=== PATIENT | male | born 2000 ===

== ENCOUNTER 2018-09-25 17:19 | Emergency (ER) | payer SELFPAY ==
[~2018-09-25] VITALS: Ht 170.2 cm; Wt 65.8 kg
[2018-09-25] MEDS ORDERED: NS IV 1000 ML 1,000 ML IV SCH (18:08)
[2018-09-25] MEDS ORDERED: FAMOTIDINE 20MG/2ML IV (PEPCID) IV STA (18:08)
[2018-09-25] MEDS ORDERED: LIDOCAINE 2% VISCOUS 15 ML UDC PO ONE (18:15)
[2018-09-25] MEDS ORDERED: ANTACID SUSP 30 ML UDC (MYLANTA) PO ONE (18:15)
--- NOTE | 2018-09-25 18:25 | ED Chest Pain ---
General Chief Complaint: Chest Wall/Rib Pain Stated Complaint: EKG ABNORMAL AT [facility] Nursing Triage Note: AMB TO ROOM WAS SENT FROM [facility] FOR ABNORMOL EKG LANGUAGE LINE CALLED TO Sasha GARCIA AND THIS NURSE. PATIENT HAS HAD THE PAIN IN L CHEST WALL FOR 2 MONTHS . 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 Onset 2 months ago. Pain has been worse over the last 2 weeks. Also reports pain is worse at nighttime with lying down, movement, and eating breakfast. Patient does report nausea and vomiting with eating breakfast over the last 2 weeks. Patient was seen at [facility] today with an EKG performed. Patient reports being instructed come to the emergency department for further evaluation due to questionable EKG abnormalities. Timing/Duration: getting worse (worse over the last 2 weeks), other (2 month onset) Severity/Quality: sharp Location: central Radiation: no radiation Activities at Onset: none Prior CP/Workup: no prior chest pain, no prior cardiac workup Modifying Factors: worse with lying down, worse with movement ASA po MACHINE HOSTLER: No NTG SL MACHINE HOSTLER: No Allergies and Home Medications Allergies Coded Allergies: No Known Drug Allergies (Unverified , 09/25/18) Home Medications Omeprazole 40 Mg Capsule.dr, 40 MG PO DAILY Prescribed by: YESENIA CARTAGENA on 09/25/181936 Sucralfate 1 Gm Tablet, 1 GM PO ACHS 1 gram slurry po qAC &HS [id number]. Prescribed by: YESENIA CARTAGENA on 09/25/181936 Patient Home Medication List Home Medication List Reviewed: Yes Review of Systems Review of Systems Constitutional: No chills, No diaphoresis, No dizziness, No fever, No malaise, No weakness EENTM: No Symptoms Reported Respiratory: Denies Cough, Denies Orthopnea, Denies Shortness of Air, Denies SOA With Exertion, Denies Stridor, Denies Wheezing Cardiovascular: See HPI, Chest Pain; Denies Irregular Heart Rate, Denies Lightheadedness, Denies Palpitations, Denies Syncope Gastrointestinal: Denies Abdomen Distended, Denies Abdominal Pain, Denies Blood Streaked Stools, Denies Constipated, Denies Diarrhea; Nausea, Poor Appetite (poor appetite at breakfast ); Denies Rectal Bleeding; Vomiting Genitourinary: Denies Burning, Denies Discharge, Denies Frequency, Denies Hematuria, Denies Pain Musculoskeletal: no symptoms reported Skin: no symptoms reported Psychiatric/Neurological: No Symptoms Reported Endocrine: No Symptoms Reported All Other Systems Reviewed Negative Unless Noted: Yes (Negative excepted noted.) Past Uocihoo-Olfzhp-Eftztk Hx Past Med/Social Hx: Reviewed Nursing Past Med/Soc Hx Patient Social History Alcohol Use: Denies Use Recreational Drug Use: No Smoking Status: Never a Smoker Recent Foreign Travel: No Contact w/Someone Who Travel: No Recent Infectious Disease Expo: No Past Medical History Surgeries: No Respiratory: No Cardiac: Yes High Cholesterol Neurological: No Genitourinary: No Gastrointestinal: No Musculoskeletal: No Endocrine: No Psychosocial: Yes Anxiety Integumentary: No Family Medical History Reviewed Nursing Family Hx No Pertinent Family Hx Physical Exam Vital Signs Vital Signs - First Documented 09/25/18 17:25 Temp 99.0 Pulse 79 Resp 18 B/P (MAP) 127/79 O2 Delivery Room Air Capillary Refill : Height, Weight, BMI Height: 5'7.00" Weight: 145lbs. oz. [id number]; 21.09 BMI Method: General Appearance: No Apparent Distress, WD/WN HEENT: PERRL/EOMI, Pharynx Normal, Moist Mucous Membranes Neck: Full Range of Motion, Normal Inspection, Non Tender, Supple Respiratory: Lungs Clear, Normal Breath Sounds, No Accessory Muscle Use, No Respiratory Distress Cardiovascular: Regular Rate, Rhythm, No Edema, No Gallop, No JVD, No Murmur, Normal Peripheral Pulses Gastrointestinal: Normal Bowel Sounds, No Organomegaly, No Pulsatile Mass, Soft ; No Distended, No Rebound; Tenderness (epigastric tenderness.); No Other (No guarding) Extremity: Normal Capillary Refill, No Calf Tenderness, No Pedal Edema Neurologic/Psychiatric: Alert, Oriented x3, Normal Mood/Affect Skin: Normal Color, Warm/Dry Progress/Results/Core Measures Results/Orders Lab Results Laboratory Tests Test 09/25/18 18:28 09/25/18 19:00 Range/Units White Blood Count 10.8 4.3-11.0 10^3/uL Red Blood Count 4.60 4.35-5.85 10^6/uL Hemoglobin 14.0 13.3-17.7 G/DL Hematocrit 40 40-54 % Mean Corpuscular Volume 88 80-99 FL Mean Corpuscular Hemoglobin 30 25-34 PG Mean Corpuscular Hemoglobin Concent 35 32-36 G/DL Red Cell Distribution Width 12.6 10.0-14.5 % Platelet Count 346 130-400 10^3/uL Mean Platelet Volume 9.5 7.4-10.4 FL Neutrophils (%) (Auto) 63 42-75 % Lymphocytes (%) (Auto) 30 12-44 % Monocytes (%) (Auto) 5 0-12 % Eosinophils (%) (Auto) 3 0-10 % Basophils (%) (Auto) 0 0-10 % Neutrophils # (Auto) 6.8 1.8-7.8 X 10^3 Lymphocytes # (Auto) 3.2 1.0-4.0 X 10^3 Monocytes # (Auto) 0.5 0.0-1.0 X 10^3 Eosinophils # (Auto) 0.3 0.0-0.3 10^3/uL Basophils # (Auto) 0.0 0.0-0.1 10^3/uL Erythrocyte Sedimentation Rate 1 0-15 MM/HR Sodium Level 140 135-145 MMOL/L Potassium Level 3.8 3.6-5.0 MMOL/L Chloride Level 104 98-107 MMOL/L Carbon Dioxide Level 25 21-32 MMOL/L Anion Gap 11 5-14 MMOL/L Blood Urea Nitrogen 12 7-18 MG/DL Creatinine 0.81 0.60-1.30 MG/DL Estimat Glomerular Filtration Rate > 60 BUN/Creatinine Ratio 15 Glucose Level 97 70-105 MG/DL Calcium Level 9.3 8.5-10.1 MG/DL Corrected Calcium 8.5-10.1 MG/DL Magnesium Level 2.4 1.8-2.4 MG/DL Total Bilirubin 0.2 0.1-1.0 MG/DL Aspartate Amino Transf (AST/SGOT) 16 5-34 U/L Alanine Aminotransferase (ALT/SGPT) 20 0-55 U/L Alkaline Phosphatase 87 40-136 U/L Troponin I < 0.028 <0.028 NG/ML C-Reactive Protein High Sensitivity 0.23 0.00-0.50 MG/DL Total Protein 7.6 6.4-8.2 GM/DL Albumin 4.8 H 3.2-4.5 GM/DL TSH Cherry Testing 1.05 0.35-4.94 UIU/ML Urine Color YELLOW Urine Clarity CLEAR Urine pH 7 5-9 Urine Specific [place] 1.010 L 1.016-1.022 Urine Protein NEGATIVE NEGATIVE Urine Glucose (UA) NEGATIVE NEGATIVE Urine Ketones NEGATIVE NEGATIVE Urine Nitrite NEGATIVE NEGATIVE Urine Bilirubin NEGATIVE NEGATIVE Urine Urobilinogen NORMAL NORMAL MG/DL Urine Leukocyte Esterase NEGATIVE NEGATIVE Urine RBC (Auto) NEGATIVE NEGATIVE Urine RBC RARE /HPF Urine WBC NONE /HPF Urine Crystals NONE /LPF Urine Bacteria NEGATIVE /HPF Urine Casts NONE /LPF Urine Mucus NEGATIVE /LPF Urine Culture Indicated NO Urine Opiates Screen NEGATIVE NEGATIVE Urine Oxycodone Screen NEGATIVE NEGATIVE Urine Methadone Screen NEGATIVE NEGATIVE Urine Propoxyphene Screen NEGATIVE NEGATIVE Urine Barbiturates Screen NEGATIVE NEGATIVE Ur Tricyclic Antidepressants Screen NEGATIVE NEGATIVE Urine Phencyclidine Screen NEGATIVE NEGATIVE Urine Amphetamines Screen NEGATIVE NEGATIVE Urine Methamphetamines Screen NEGATIVE NEGATIVE Urine Benzodiazepines Screen NEGATIVE NEGATIVE Urine Cocaine Screen NEGATIVE NEGATIVE Urine Cannabinoids Screen NEGATIVE NEGATIVE My Orders Orders - YESENIA CARTAGENA PA Chest 1 View, Ap/Pa Only (09/25/18 18:08) Cbc With Automated Diff (09/25/18 18:08) Comprehensive Metabolic Panel (09/25/18 18:08) Magnesium (09/25/18 18:08) Thyroid Analyzer (09/25/18 18:08) Troponin I (09/25/18 18:08) Ua Culture If Indicated (09/25/18 18:08) Lidocaine 2% Viscous 15 Ml (Xylocaine Vi (09/25/18 18:15) Antacid Suspension (Mylanta Suspension (09/25/18 18:15) Famotidine Injection (Pepcid Injection) (09/25/18 18:08) Saline Lock/Iv-Start (09/25/18 18:08) Ns Iv 1000 Ml (Sodium Chloride 0.9%) (09/25/18 18:08) Drug Screen Stat (Urine) (09/25/18 18:08) Hs C Reactive Protein (09/25/18 18:17) Erythrocyte Sedimentation Rate (09/25/18 18:17) Ekg Tracing (09/25/18 18:18) Medications Given in ED Current Medications Medications Dose Ordered Sig/Jaspreet Route Start Time Stop Time Status Last Admin Dose Admin Al Hydrox/Mg Hydrox/Simethicone 30 ml ONCE ONCE PO 09/25/18 18:15 09/25/18 18:16 DC 09/25/18 18:21 30 ML Lidocaine HCl 15 ml ONCE ONCE PO 09/25/18 18:15 09/25/18 18:16 DC 09/25/18 18:22 15 ML Vital Signs/I&O 09/25/18 17:25 Temp 99.0 Pulse 79 Resp 18 B/P (MAP) 127/79 O2 Delivery Room Air Initial ECG Impression Date: Sep 25, 2018 Initial ECG Impression Time: 18:23 Initial ECG Rate: 72 Initial ECG Rhythm: Normal Sinus Initial ECG Intervals: Normal Initial ECG Impression: Normal Initial ECG Comparisson: Unchanged (unchanged from ECG from [facility].) Comment Sinus rhythm without STEMI. ECG reviewed with Dr. Almonte. Diagnostic Imaging Diagonstic Imaging: Xray Plain Films/CT/US/NM/MRI: chest Comments negative chest xray. Reviewed: Reviewed by Me (radiology report reviewed by me) Departure Communication (Admissions) Patient seen and evaluated. Initial labs, chest x-ray, and EKG obtained. Patient was given 1 L of normal saline, Pepcid 20 mg IV, and a GI cocktail with improvement in symptoms. All laboratory and diagnostic findings discussed with the patient. Plan for discharge to home with follow-up as an outpatient with [facility]. Patient to return to the emergency department for worsened symptoms or any other concerns Impression Primary Impression: Gastritis, acute Qualified Codes: K29.00 - Acute gastritis without bleeding Additional Impressions: Chest pain, non-cardiac GERD (gastroesophageal reflux disease) Qualified Codes: K21.0 - Gastro-esophageal reflux disease with esophagitis Disposition: HOME, SELF-CARE Condition: Improved Departure-Patient Inst. Decision time for Depature: 19:33 Referrals: [facility] (PCP/Family) Primary Care Physician Patient Instructions: Acid Reflux (Gastroesophageal Reflux Disease), Adult (DC) , Chest Pain (DC), Ulcer and Gastritis Diet Add. Discharge Instructions: All discharge instructions reviewed with patient and/or family. Voiced understanding. Medications as directed. Pepcid [id number] 20 mg by mouth every 12 hours as needed for symptoms. Tylenol over the counter as directed for pain. NO MOTRIN, IBUPROFEN, ALEVE, ASPIRIN. AVOID SPICY FOODS AND FATTY FOODS. NO CARBONATED BEVERAGES. NO CAFFEINE. DO NOT LAY DOWN FOR 2 HOURS AFTER EATING. ELEVATE THE HEAD OF YOUR BED IF NEEDED. Drink plenty of fluids. Follow-up with [facility] for recheck within the next 2 weeks, call tomorrow morning for appointment time. Return to the emergency department for worsened pain, vomiting blood, abdominal swelling shortness of breath, rectal bleeding, black stools, fever, or any other concerns. Scripts Sucralfate (Carafate) 1 Gm Tablet 1 GM PO ACHS, #56 TAB 0 Refills 1 gram slurry po qAC &HS [id number]. Prov: YESENIA CARTAGENA 09/25/18 Omeprazole (Omeprazole) 40 Mg Capsule. 40 MG PO DAILY, #30 CAP 0 Refills Prov: YESENIA CARTAGENA 09/25/18 YESENIA CARTAGENA Sep 25, 2018 18:25
[2018-09-25 18:35] LABS: BASOPHILS % (AUTO) 0 % (0-10); EOSINOPHILS # (AUTO) 0.3 10^3/uL (0.0-0.3); EOSINOPHILS % (AUTO) 3 % (0-10); HEMATOCRIT 40 % (40-54); LYMPHOCYTES # (AUTO) 3.2 X 10^3 (1.0-4.0); LYMPHOCYTES % (AUTO) 30 % (12-44); MEAN CORPUSCULAR HEMOGLOBIN 30 PG (25-34); MEAN CORPUSCULAR HGB CONC 35 G/DL (32-36); MEAN CORPUSCULAR VOLUME 88 FL (80-99); MEAN PLATELET VOLUME 9.5 FL (7.4-10.4); MONOCYTES # (AUTO) 0.5 X 10^3 (0.0-1.0); MONOCYTES % (AUTO) 5 % (0-12); NEUTROPHILS # (AUTO) 6.8 X 10^3 (1.8-7.8); NEUTROPHILS % (AUTO) 63 % (42-75); PLATELET COUNT 346 10^3/uL (130-400); RED CELL DISTRIBUTION WIDTH 12.6 % (10.0-14.5); WHITE BLOOD COUNT 10.8 10^3/uL (4.3-11.0)
--- NOTE | 2018-09-25 18:38 | Diagnostic Imaging Report ---
Indication: Abnormal EKG Portable chest 6:30 PM Heart size and pulmonary vascular normal. Lungs are clear. There are no effusions or pneumothoraces. Impression: Negative chest and Dictated by: Dictated on workstation # [id number]
[2018-09-25 18:54] LABS: ALANINE AMINOTRANSFERASE 20 U/L (0-55); ALBUMIN 4.8 GM/DL (3.2-4.5); ALKALINE PHOSPHATASE 87 U/L (40-136); BILIRUBIN,TOTAL 0.2 MG/DL (0.1-1.0); BUN/CREATININE RATIO 15; CALCIUM 9.3 MG/DL (8.5-10.1); CARBON DIOXIDE 25 MMOL/L (21-32); CHLORIDE 104 MMOL/L (98-107); CREATININE SERUM 0.81 MG/DL (0.60-1.30); GFR ESTIMATED > 60; GLUCOSE 97 MG/DL (70-105); MAGNESIUM 2.4 MG/DL (1.8-2.4); POTASSIUM 3.8 MMOL/L (3.6-5.0); SODIUM 140 MMOL/L (135-145); TOTAL PROTEIN 7.6 GM/DL (6.4-8.2)
[2018-09-25 18:55] LABS: ERYTHROCYTE SEDIMENTATION RATE 1 MM/HR (0-15)
[2018-09-25 19:06] LABS: BILIRUBIN,URINE NEGATIVE (NEGATIVE); CLARITY,URINE CLEAR; COLOR,URINE YELLOW; GLUCOSE, URINE (UA) NEGATIVE (NEGATIVE); KETONES,URINE NEGATIVE (NEGATIVE); LEUKOCYTE ESTERASE ,URINE NEGATIVE (NEGATIVE); NITRITE,URINE NEGATIVE (NEGATIVE); PH,URINE 7 (5-9); PROTEIN,URINE NEGATIVE (NEGATIVE); UROBILINOGEN,URINE NORMAL (NORMAL)
[2018-09-25 19:14] LABS: TSH (THYROID ANALYZER) 1.05 UIU/ML (0.35-4.94)
[2018-09-25 19:23] LABS: RBC,URINE RARE /HPF
[2018-09-25 19:24] LABS: BACTERIA,URINE NEGATIVE /HPF
[2018-09-25 19:25] LABS: AMPHETAMINE SCREEN, URINE NEGATIVE (NEGATIVE); BARBITURATE SCREEN URINE NEGATIVE (NEGATIVE); BENZODIAZEPINES SCREEN URINE NEGATIVE (NEGATIVE); CANNABINOID SCREEN, URINE NEGATIVE (NEGATIVE); COCAINE SCREEN URINE NEGATIVE (NEGATIVE); METHADONE STAT NEGATIVE (NEGATIVE); METHAMPHETAMINE SCREEN URINE S NEGATIVE (NEGATIVE); OPIATE SCREEN URINE NEGATIVE (NEGATIVE); OXYCODONE STAT NEGATIVE (NEGATIVE); PROPOXYPHENE STAT NEGATIVE (NEGATIVE); TRICYCLIC ANTIDEPRESSANTS SCRE NEGATIVE (NEGATIVE)
[2018-09-25] MEDS ORDERED: SUCR1TAB36 PO (19:37)
[2018-09-25] MEDS ORDERED: OMEP40CA36 PO (19:37)
[2018-09-25 19:55] VITALS: BP 127/80
== END 2018-09-25 19:55 | disposition home or self-care (01) ==
LOC: ER 17:24
DX: K29.00 Acute gastritis without bleeding (principal); K21.9 Gastro-esophageal reflux disease without esophagitis; R07.9 Chest pain, unspecified; E78.00 Pure hypercholesterolemia, unspecified; F41.9 Anxiety disorder, unspecified
CPT/HCPCS: 36415; 71045; 80053; 80306; 81000; 83735; 84443; 84484; 85025; 85652; 86141; 93005; 96374